=== PATIENT | female | born 1945 | race Caucasian/White ===

== ENCOUNTER → 2017-05-27 | Outpatient (CLI) | payer MEDICARE, BC ==
[~2017-05-27] MED LIST: AMLO5TAB2 PO; CITRTAB16 PO; COQ-100C5 PO; ECASA81 PO; FISH300C PO; GLUC15009 PO; IBUP1TAB5 PO; L-AR1000 PO; L. A1CAP3 PO; LACTCAP8 PO; MONT10TA4 PO; MULT1CAP2 PO; OCUVTAB4 PO; OMEP20TA93 PO; VALS160T4 PO; VITA500C18 PO
--- NOTE | 2017-05-27 12:47 | RADRPT ---
EXAM DATE/TIME: 05/27/2017 12:25 [facility] COMPARISON: No previous studies available for comparison. INDICATIONS : Evaluate for pneumonia, pneumothorax or communicable disease. Pre-op for left total hip replacement. MEDICAL HISTORY : Hypertension. SURGICAL HISTORY : None. ENCOUNTER: Initial ACUITY: 1 day PAIN SCORE: 0/10 LOCATION: Bilateral chest FINDINGS: PA and lateral views of the chest demonstrate the lungs to be symmetrically aerated without evidence of mass, infiltrate or effusion. The cardiomediastinal contours are unremarkable. Mild degenerative changes thoracic spine. CONCLUSION: No acute disease. Oracio Mac MD FACR on May 27, 2017 at 12:45 Board Certified Radiologist. This report was verified electronically.
[2017-05-27 14:06] LABS: BASOPHIL # 0.1 TH/MM3 (0-0.2); BASOPHIL % 1.7 % (0.0-2.0); EOSINOPHIL # 0.4 TH/MM3 (0-0.4); EOSINOPHIL % 5.6 % (0.0-4.0); HEMOGLOBIN 13.6 GM/DL (11.6-15.3); LYMPH % 35.4 % (9.0-44.0); LYMPHOCYTE # 2.8 TH/MM3 (1.0-4.8); MEAN CELL VOLUME 92.8 FL (80.0-100.0); MEAN CORPUSCULAR HEMOGLOBIN 30.8 PG (27.0-34.0); MEAN CORPUSCULAR HGB CONC 33.2 % (32.0-36.0); MONOCYTE # 0.6 TH/MM3 (0-0.9); NEUT % 50.3 % (16.0-70.0); PLATELET COUNT 278 TH/MM3 (150-450); RED BLOOD COUNT 4.42 MIL/MM3 (4.00-5.30); RED CELL DISTRIBUTION WIDTH 13.7 % (11.6-17.2); WHITE BLOOD COUNT 7.9 TH/MM3 (4.0-11.0)
[2017-05-27 14:19] LABS: INTERNATIONAL NORMALIZED RATIO 1.1 RATIO; PROTHROMBIN TIME - PATIENT 10.7 SEC (9.8-11.6)
[2017-05-27 14:20] LABS: BACTERIA, URINE RARE /hpf; BILIRUBIN, URINE NEG (NEG); BLOOD, URINE NEG (NEG); GLUCOSE,URINE NEG (NEG); KETONE, URINE NEG (NEG); MUCUS URINE FEW /lpf (OCC); NITRITE,URINE NEG (NEG); SQUAMOUS EPITHELIAL CELL URINE <1 /hpf (0-5); URINE COLOR YELLOW (YELLW/STRAW); URINE LEUKOCYTE ESTERASE NEG (NEG)
[2017-05-27 14:24] LABS: WESTERGREN SEDIMENTATION RATE 9 mm/hr (0-30)
[2017-05-27 14:30] LABS: ALBUMIN 4.1 GM/DL (3.4-5.0); AST (GOT) 26 U/L (15-37); BICARBONATE 28.4 MEQ/L (21.0-32.0); BLOOD UREA NITROGEN 17 MG/DL (7-18); CALCIUM 9.4 MG/DL (8.5-10.1); CHLORIDE 103 MEQ/L (98-107); CREATININE 0.56 MG/DL (0.50-1.00); GLOMERULAR FILTRATION RATE 107 ML/MIN (>89); GLUCOSE,FASTING 98 MG/DL (74-99); SODIUM (NA) 138 MEQ/L (136-145)
[2017-05-27 14:32] LABS: ALT (GPT) 33 U/L (10-53)
[2017-05-27 14:34] LABS: ALKALINE PHOSPHATASE 90 U/L (45-117); TOTAL BILIRUBIN ADULT 0.3 MG/DL (0.2-1.0); TOTAL PROTEIN 7.9 GM/DL (6.4-8.2)
--- NOTE | 2017-05-28 13:06 | EKG ---
Date Performed: 05/27/2017 Time Performed: 11:46:00 PTAGE: 71 years EKG: Sinus rhythm Within normal limits Abnormal ECG NO PREVIOUS TRACING DOCTOR: Sy Alicea Interpretating Date/Time 05/28/2017 13:05:30
== END ==
LOC: CPRE 11:18
PROVIDERS: ATTEND Orthopaedic Surgery
DX: Z01.812 Encounter for preprocedural laboratory examination (principal); Z01.811 Encounter for preprocedural respiratory examination; Z01.810 Encounter for preprocedural cardiovascular examination; M79.609 Pain in unspecified limb; M25.50 Pain in unspecified joint; M16.12 Unilateral primary osteoarthritis, left hip; Z96.60 Presence of unspecified orthopedic joint implant
CPT/HCPCS: 36415; 71046; 80053; 81001; 85025; 85610; 85652; 85730; 93005

== ENCOUNTER 2017-06-15 05:16 | Inpatient (IN) | payer MEDICARE, BC ==
[~2017-06-15] VITALS: Ht 152.4 cm; Wt 61.8 kg
[~2017-06-15 05:16] MED LIST changes: -LACTCAP8 PO
[2017-06-15] MEDS ORDERED: SODIUM CHLORID 0.9% 500 ML IV PRN (05:45)
[2017-06-15] MEDS ORDERED: EXPAREL PERI-ARTICULAR INJECTION (TOTAL VOL. 60 ML) P-ARTICULR SCH ×2 (05:45)
[2017-06-15] MEDS ORDERED: TRANEXAMIC ACID INJ 700 MG in SODIUM CHLORIDE 0.9% INJ 100 ML IV SCH ×2 (05:45→10:30)
[2017-06-15] MEDS ORDERED: METOPROLOL TARTRATE 25 MG TAB PO PRN (05:45)
[2017-06-15] MEDS ORDERED: POVIDONE IODINE 7.5% SCRUB 118 ML BOTTLE TOPICAL SCH (05:45)
[2017-06-15] MEDS ORDERED: DEXAMETHASONE SOD PHOS 20 MG/5 ML VIAL IV PRN (05:45)
[2017-06-15] MEDS ORDERED: LACTATED RINGER'S 1000 ML IV PRN (05:45)
[2017-06-15] MEDS ORDERED: VANCOMYCIN 1000 MG/NS 250 ML (for <70 kg) IV SCH ×2 (05:45)
[2017-06-15] MEDS ORDERED: CHLORHEXIDINE GLUCONATE 2 % 1 PACK (2 CLOTHS) TOPICAL PRN (05:45)
[2017-06-15] MEDS ORDERED: ceFAZolin 2 GM PREMIX 50 ML IV SCH ×2 (05:45→06:30)
[2017-06-15] MEDS ORDERED: POVIDONE IODINE 5% (ANTISEPSIS KIT) 4 APPLICATIONS EACH NARE PRN (05:45)
[2017-06-15] MEDS ORDERED: META800 PO (05:49)
[2017-06-15] MEDS ORDERED: ACET650T67 PO (05:49)
[2017-06-15] MEDS ORDERED: GENTAMICIN SULFATE 80 MG/2 ML VIAL ONE (06:09)
[2017-06-15] MEDS ORDERED: ceFAZolin INJ 1,000 MG VIAL ONE (06:38)
--- NOTE | 2017-06-15 06:50 | HHI.FF ---
Face to Face Verification Diagnosis: (1) Osteoarthritis of left hip (2) Status post total hip replacement, left Physical Therapy Gait training, Transfer training, bed to chair Hip: Total hip Left LE Weight Bearing: WB as tolerated Left LE Range of Motion: Active ROM Nursing Nursing: Mariam quiles Dressing Changes: Do not change dressing Additional Instructions First dressing change in office I have seen patient Nely Londono on 06/15/17. My clinical findings support the need for the requested home health care services because: Limited ability to care for self High risk of falls I certify that my clinical findings support that this patient is homebound because: Post-op weakness Unsteady gait/balance Radames Alva Jun 15, 2017 06:50
--- NOTE | 2017-06-15 06:50 | HHI.DCPOC ---
Discharge Care Plan Diagnosis: (1) Osteoarthritis of left hip (2) Status post total hip replacement, left Your Health Problems Are: Difficulty with ADL Goals to Promote Your Health * To prevent worsening of your condition and complications * To maintain your health at the optimal level Directions to Meet Your Goals Take your medications as prescribed Follow your dietary instruction Follow activity as directed Keep your appointments as scheduled Take your immunizations and boosters as scheduled If your symptoms worsen call your PCP, if no PCP go to Urgent Care Center or Emergency Room Smoking is Dangerous to Your Health. Avoid second hand smoke Call the 24-hour hour crisis hotline for domestic abuse at Radames Alva Jun 15, 2017 06:50
[2017-06-15] MEDS ORDERED: COMMODE 3-IN-11 MIS (06:59)
[2017-06-15] MEDS ORDERED: WALKER WHEELS/F1 MIS (06:59)
[2017-06-15] MEDS ORDERED: PROPOFOL 200 MG/20 ML AMP ONE (08:33)
--- NOTE | 2017-06-15 08:49 | RADRPT ---
EXAM DATE/TIME: 06/15/2017 07:35 [facility] COMPARISON: No previous studies available for comparison. INDICATIONS : Left hip pain, anterior hip replacement done in operating room. MEDICAL HISTORY : None. SURGICAL HISTORY : None. ENCOUNTER: Initial ACUITY: 1 day PAIN SCORE: 10/10 LOCATION: Left hip. CONCLUSION: Fluoroscopic images during placement of left hip prosthesis. Davey Cabrera MD on June 15, 2017 at 8:46 Board Certified Radiologist. This report was verified electronically.
--- NOTE | 2017-06-15 08:56 | PD.OP ---
cc: Damon Rojas MD Operative Report Date of Surgery: Jun 15, 2017 Preoperative Diagnosis: Left hip severe osteoarthritis Postoperative Diagnosis: Same Procedure: Left total hip arthroplasty Anesthesia: Spinal Surgeon: Damon Rojas Tailing Hand(s): SARAN Farfan The surgical procedure was assisted by my Advanced Registered Nurse Practitioner. My VOICE OVER ARTIST presence was necessary throughout this case for the manipulation and positioning of the surgical extremity. My VOICE OVER ARTIST was assisting me throughout the duration of this procedure. The skill set of an Advance Registered Nurse Practitioner was medically necessary to complete this procedure. During the surgical case, the wound care technician was working at the back table and the Advance Registered Nurse Practitioner was directly assisting me. Operation and Findings: IMPLANT DESCRIPTION: 1. [place] Gription Cup, acetabular size 50, with 2 acetabular screws. 2. [place] AltrX polyethylene, neutral. 4. [place] femoral stem size 11, no collar, standard offset. 5. Femoral head/neck, 32, +1. ESTIMATED BLOOD LOSS: 250 cc. JUSTIFICATION FOR PROCEDURE: The patient has end-stage osteoarthritis to the hip. There is an attached conservative measures pathway form in the chart that describes the nonoperative measures that were undertaken prior to consideration of surgical management. The patient understood the risks and benefits of surgical management. See my office notes for further details. PROCEDURE: The patient was brought back to the operative theatre. Adequate anesthesia was obtained. The patient received intravenous vancomycin and Ancef. Note that a test dose of Ancef was given by anesthesia prior to regaining of the surgery. The patient was carefully placed on the operative table. The lower extremity was prepped and draped in the usual sterile fashion. Fluoroscopic images were obtained. We made a standard anterior incision over the hip. We dissected through the TFL fascia, exposing the anterior capsule. Arthrotomy was performed in a T-shaped fashion. The capsule was tagged with a #2 FiberWire. End-stage arthritis was identified. Osteotomy was performed through the femoral neck exposing the acetabulum. Remnants of the labrum were resected and osteophytes were removed. We sequentially reamed the acetabulum. We trialed the hip and placed the final cup into position. This was done under fluoroscopic guidance to obtain the appropriate inclination and anteversion. A manhole cover was placed into the acetabular component. We then placed the final polyethylene into position and confirmed that it was well seated. Capsular attachments on the calcar and the inner aspect of the greater trochanter were resected. On the proximal aspect of the femur we used a rongeur , box osteotome, canal finder, sequential broaches and lateralizing rasp. We calcar planed the proximal femur. Then thoroughly irrigated the wound. We trialed the hip with the appropriate size stem. We placed the final stem in to position and trialed again. The hip was stable while it was externally rotated 70 degrees when the leg was lowered to the floor. The final head was applied, and final fluoroscopic images were obtained. The wound was thoroughly irrigated again. Interarticular injection of liposomal bupivacaine was given. The capsule was closed with #2 FiberWire and #1 Vicryl. The deep fascia was closed with a #2 Stratafix, followed by 2-0 Vicryl in the skin and Dermabond dressing. Postop plan is to weight-bear as tolerated. DVT prophylaxis will be performed with SCDzainab, RONEN mora, early mobilization, and Lovenox followed by aspirin. Damon Rojas MD Jun 15, 2017 08:56
[2017-06-15] MEDS ORDERED: DO NOT ADM ANY ANTICOAGULANT DRUGS PRN (09:16)
[2017-06-15] MEDS ORDERED: MIDAZOLAM HCL 2 MG/2 ML VIAL ONE (09:21)
[2017-06-15] MEDS ORDERED: *morphine SULFATE 10 MG/ML PERIprocedure ONLY ONE ×2 (09:24→10:51)
[2017-06-15] MEDS: amLODIPine BESYLATE 5 MG TAB PO SCH (10:00)
[2017-06-15] MEDS: VALSARTAN 160 MG TAB PO SCH (10:00)
[2017-06-15] MEDS: PANTOPRAZOLE SOD 20 MG DELAYED RELEASE TAB PO SCH (10:00)
[2017-06-15] MEDS ORDERED: ALUMINUM/MAGNESIUM/SIMETH 30 ML CUP PO PRN (10:30)
[2017-06-15] MEDS ORDERED: ACETAMINOPHEN/HYDROcodone 325 MG/5 MG TAB PO PRN (10:30)
[2017-06-15] MEDS ORDERED: Post-op Orders (for Pharmacy) XX ONE (10:30)
[2017-06-15] MEDS ORDERED: NALOXONE HCL 0.4 MG/ML AMP IV PUSH PRN (10:30)
[2017-06-15] MEDS ORDERED: diphenhydrAMINE HCL 50 MG/ML VIAL IV PUSH PRN (10:30)
[2017-06-15] MEDS ORDERED: BISACODYL 10 MG SUPP RECTAL PRN (10:30)
[2017-06-15] MEDS: METAXALONE 800 MG TAB PO SCH ×3 (11:00→17:18)
--- NOTE | 2017-06-15 11:21 | RADRPT ---
EXAM DATE/TIME: 06/15/2017 10:18 [facility] COMPARISON: No previous studies available for comparison. INDICATIONS : Post op left hip surgery. MEDICAL HISTORY : None. SURGICAL HISTORY : None. ENCOUNTER: Initial ACUITY: 1 day PAIN SCORE: 0/10 LOCATION: Left hip. FINDINGS: Examination of the left hip was performed with AP Pelvis. A left hip arthroplasty. Postsurgical camacho es are seen. No hardware loosening/fracture of left hip. The acetabulum is grossly intact. Lucency i n the iliac bone likely postsurgical changes/air. CONCLUSION: Left hip arthroplasty. Davey Cabrera MD on June 15, 2017 at 11:16 Board Certified Radiologist. This report was verified electronically.
[2017-06-15 12:00] VITALS: BP 105/59; PULSE 87; RESP 17; TEMP 95.4; O2SAT 97
[2017-06-15] MEDS ORDERED: PHENYLEPH/NS 1000 MCG/10 ML SYR IV ONE (12:00)
[2017-06-15] MEDS: SODIUM CHLOR 0.9% 1000 ML INJ 1,000 ML IV SCH ×2 (12:00→19:56)
[2017-06-15] MEDS ORDERED: LIDOCAINE HCL 1% PF 5 ML SYRINGE OTHER ONE (12:00)
[2017-06-15] MEDS ORDERED: PROPOFOL 200 MG/20 ML AMP IV ONE (12:00)
[2017-06-15] MEDS ORDERED: ePHEDrine/NS 25 MG/5 ML SYRINGE IV ONE (12:00)
[2017-06-15] MEDS ORDERED: LACTATED RINGER'S 1000 ML INJ 1,000 ML IV ONE (12:00)
[2017-06-15] MEDS: ACETAMINOPHEN/HYDROcodone 325 MG/5 MG TAB PO PRN ×2 (12:46→16:35)
[2017-06-15 15:38] VITALS: O2SAT 98
[2017-06-15 16:00] VITALS: BP 149/54; PULSE 90; RESP 17; TEMP 95.8; O2SAT 95
[2017-06-15] MEDS: ONDANSETRON HCL 4 MG/2 ML VIAL IVP PRN (17:57)
[2017-06-15] MEDS: MONTELUKAST SODIUM 10 MG TAB PO SCH (19:56)
[2017-06-15] MEDS: traMADol HCL 50 MG TAB PO PRN (19:56)
--- NOTE | 2017-06-15 20:08 | RADRPT ---
EXAM DATE/TIME: 06/15/2017 19:31 [facility] COMPARISON: No previous studies available for comparison. INDICATIONS : Left hip pain. Evaluate for injury to femoral nerve. ORAL CONTRAST: No oral contrast ingested. RADIATION DOSE: 15.35 CTDIvol (mGy) MEDICAL HISTORY : Hypertension. SURGICAL HISTORY : Cholecystectomy. Left total hip. ENCOUNTER: Initial ACUITY: 1 day PAIN SCALE: 9/10 LOCATION: Left hip. TECHNIQUE: Volumetric scanning of the pelvis was performed. Using automated exposure control and adjustment of the mA and/or kV according to patient size, radiation dose was kept as low as reasonably achievable t o obtain optimal diagnostic quality images. DICOM format image data is available electronically for review and comparison. FINDINGS: There are postoperative changes of left hip replacement. The anterior screw extending from the acetab ular cup extends into the left iliacus muscle. There is a small iliacus hematoma. There is also multi loculated air within the left iliacus muscle. There is also a air in the soft tissues around the left hip from hip replacement. CONCLUSION: 1. Postoperative left total hip replacement. The anterior screw extends into the left iliacus muscle with a small amount of iliacus hemorrhage and multiple locules of air soft tissues around the hip rep lacement. The posterior screw remains within the iliac bone. Jaycob Vallejo MD on June 15, 2017 at 20:01 Board Certified Radiologist. This report was verified electronically.
[2017-06-15 20:30] VITALS: BP 121/64; PULSE 97; RESP 17; TEMP 97.8; O2SAT 97
[2017-06-15] MEDS ORDERED: PROMETHAZINE HCL 12.5 MG SUPP RECTAL PRN (20:30)
[2017-06-15] MEDS: ZOLPIDEM TARTRATE 5 MG TAB PO PRN (21:53)
[2017-06-16] MEDS: MORPHINE SULFATE 2 MG/ML INJ IV PUSH PRN ×3 (00:10→09:33)
[2017-06-16] MEDS: SODIUM CHLOR 0.9% 1000 ML INJ 1,000 ML IV SCH ×3 (00:10→19:36)
[2017-06-16] MEDS: ONDANSETRON HCL 4 MG/2 ML VIAL IVP PRN ×4 (00:10→18:20)
[2017-06-16 00:20] VITALS: BP 119/66; PULSE 98; RESP 17; TEMP 97.1; O2SAT 94
[2017-06-16] MEDS: traMADol HCL 50 MG TAB PO PRN ×2 (04:12→10:48)
[2017-06-16 04:35] VITALS: BP 122/62; PULSE 90; RESP 17; TEMP 98.3; O2SAT 95
[2017-06-16 08:00] VITALS: BP 105/59; PULSE 90; RESP 18; TEMP 98.6; O2SAT 95
[2017-06-16] MEDS ORDERED: ENOXAPARIN SODIUM 40 MG/0.4 ML SYRINGE SQ SCH (08:00)
[2017-06-16 08:36] LABS: HEMATOCRIT 29.5 % (35.0-46.0); HEMOGLOBIN 10.2 GM/DL (11.6-15.3); MEAN CELL VOLUME 90.9 FL (80.0-100.0); MEAN CORPUSCULAR HEMOGLOBIN 31.4 PG (27.0-34.0); MEAN CORPUSCULAR HGB CONC 34.6 % (32.0-36.0); MEAN PLATELET VOLUME 7.9 FL (7.0-11.0); PLATELET COUNT 219 TH/MM3 (150-450); RED BLOOD COUNT 3.25 MIL/MM3 (4.00-5.30); RED CELL DISTRIBUTION WIDTH 14.5 % (11.6-17.2); WHITE BLOOD COUNT 10.6 TH/MM3 (4.0-11.0)
[2017-06-16] MEDS: VALSARTAN 160 MG TAB PO SCH (08:38)
[2017-06-16] MEDS: PANTOPRAZOLE SOD 20 MG DELAYED RELEASE TAB PO SCH (08:38)
[2017-06-16] MEDS: amLODIPine BESYLATE 5 MG TAB PO SCH (08:38)
[2017-06-16] MEDS: METAXALONE 800 MG TAB PO SCH ×3 (08:39→18:20)
[2017-06-16] MEDS: HYDROCHLOROTHIAZIDE 12.5 MG CAP PO SCH (08:41)
[2017-06-16 12:00] VITALS: BP 129/56; PULSE 93; RESP 18; TEMP 98.2; O2SAT 92
[2017-06-16] MEDS ORDERED: DEXAMETHASONE SOD PHOS 20 MG/5 ML VIAL IV ONE (12:00)
--- NOTE | 2017-06-16 12:02 | RADRPT ---
EXAM DATE/TIME: 06/16/2017 11:27 [facility] COMPARISON: No previous studies available for comparison. INDICATIONS : Evaluate for femoral nerve palsy. Left quad weakness and pain. MEDICAL HISTORY : Hypertension. SURGICAL HISTORY : Cholecystectomy. Discectomy, lumbar. Left hip replacement. ENCOUNTER: Subsequent ACUITY: 2 day PAIN SCORE: 0/10 LOCATION: back. TECHNIQUE: Multiplanar multisequence MRI of the lumbar spine was performed without contrast. FINDINGS: The most caudal appearing lumbar vertebra is numbered as L5. VERTEBRAE: Bony changes about the T12-L1 intervertebral disc indicating reactive change from degenerative disc d isease. Similar finding is seen at L5-S1. Alignment is within normal limits. CONUS: Normal level and configuration. Peripelvic cysts noted in the kidneys. T12-L1: Broad-based disc bulge results in flattening of the anterior contour of the thecal sac. Central canal diameter is within normal limits. Moderate bilateral neural foraminal narrowing. L1-L2: No evidence of focal disc protrusion. Central canal normal diameter. Neural foraminal diameters withi n normal limits. L2-L3: Broad-based disc bulge and moderate severity bilateral facet arthrosis. Central canal diameter is min imally narrowed. Mild narrowing of the left lateral recess. Minimal bilateral neural foraminal narrow ing. L3-L4: Broad-based disc bulge and moderate bilateral facet arthrosis. Mild central canal narrowing. Moderate right and mild left neural foraminal narrowing. L4-L5: Broad-based disc bulge and moderate bilateral facet arthrosis. Central canal diameter within normal l imits. Moderate left neural foraminal narrowing. Small right-sided synovial cyst extending from the f acet joint measuring 4 mm and mildly deforming the right posterior aspect of the thecal sac. L5-S1: Severe bilateral facet arthrosis. Broad-based disc osteophyte complex. Central canal diameter within normal limits. Moderate right neural foraminal narrowing and moderate right lateral recess narrowing. Possible impingement of the right S1 nerve root. Mild left neural foraminal narrowing. CONCLUSION: 1. Multilevel degenerative findings of the lumbar spine. 2. Prominent reactive bony changes right base disc bulge and facet arthrosis a T12-L1 results in mode rate bilateral neural foraminal narrowing. Broad-based disc bulge and facet arthrosis at L2-3 results in minimal central canal narrowing and mild left lateral recess narrowing. 3. Broad-based disc bulge and facet arthrosis at L3-4 results in mild central canal narrowing, modera te right and mild left neural foraminal narrowing. 4. Broad-based disc bulge and facet arthrosis L4-5 results in moderate left neural foraminal narrowin g. Small right-sided synovial cyst is also seen at this level extending from the facet joint. 5. Severe bilateral facet arthrosis and broad-based disc osteophyte complex at L5-S1 resulting in mod erate right neural foraminal narrowing and moderate right lateral recess narrowing with possible impi ngement of right S1 nerve root. Koby Kingsley MD on June 16, 2017 at 11:52 Board Certified Radiologist. This report was verified electronically.
[2017-06-16] MEDS: ACETAMINOPHEN/HYDROcodone 325 MG/5 MG TAB PO PRN ×2 (12:31→18:19)
--- NOTE | 2017-06-16 13:11 | PD.ORT.PN ---
Subjective Post Op Day #: 1 Subjective Remarks Patient is resting in bed with moderate to severe left hip pain and weakness about the quads. Patient unable to ambulate due to weakness and buckling of the left knee. Objective Vitals Vital Signs Date Time Temp Pulse Resp B/P (MAP) Pulse Ox O2 Delivery O2 Flow Rate FiO2 06/16/17 08:00 98.6 90 18 105/59 (74) 95 06/16/17 04:35 98.3 90 17 122/62 (82) 95 06/16/17 00:20 97.1 98 17 119/66 (83) 94 06/15/17 20:30 97.8 97 17 121/64 (83) 97 06/15/17 16:00 95.8 90 17 149/54 (85) 95 06/15/17 15:38 98 21 I/O 06/15/17 06/15/17 06/15/17 06/16/17 06/16/17 06/16/17 07:00 15:00 23:00 07:00 15:00 23:00 Intake Total 1700 ml 360 ml 2060 ml Output Total 251 ml Balance 1449 ml 360 ml 2060 ml Intake Oral 360 ml 360 ml IV Total 1700 ml 1700 ml Output Stool Total 1 ml Estimated Blood Loss 250 ml # Voids 1 1 3 # Bowel Movements 1 0 0 Result Diagram: 06/16/17 0758 Imaging Last 24 hours Impressions Lumbar Spine MRI 06/16/17 0000 Signed Impressions: Service Date/Time: May 11:27 - CONCLUSION: 1. Multilevel degenerative findings of the lumbar spine. 2. Prominent reactive bony changes right base disc bulge and facet arthrosis a T12-L1 results in moderate bilateral neural foraminal narrowing. Broad-based disc bulge and facet arthrosis at L2-3 results in minimal central canal narrowing and mild left lateral recess narrowing. 3. Broad-based disc bulge and facet arthrosis at L3- 4 results in mild central canal narrowing, moderate right and mild left neural foraminal narrowing. 4. Broad-based disc bulge and facet arthrosis L4-5 results in moderate left neural foraminal narrowing. Small right-sided synovial cyst is also seen at this level extending from the facet joint. 5. Severe bilateral facet arthrosis and broad-based disc osteophyte complex at L5-S1 resulting in moderate right neural foraminal narrowing and moderate right lateral recess narrowing with possible impingement of right S1 nerve root. Koby Kingsley MD Procedures Left DESTINEE Objective Remarks Dressing is C/D/I. Calf is soft and nontender. EHL/TA/G intact. 2+ pedal pulse. + SILT. Weakness (1/5 quad strength). 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 WBAT LLE 2.Hold Lovenox for potential surgery tomorrow. 3. Maintain dressing. No dressing changes 4. Awaiting MRI results of LS to r/o complication causing LLE weakness (quads) 5. CT of pelvis confirming acetabular screw protruding from acetabulum causing soft tissue impingement and hematoma 6. Potential for femoral nerve palsy from acetabular screw vs complication from LS. Patient has extensive history of LS complaints including pain 7. May need subsequent surgery to address protruding screw in left hip. 8. Dr. Rojas to f/u with patient this afternoon. Radames Alva Jun 16, 2017 13:11
[2017-06-16 16:00] VITALS: BP 110/88; PULSE 86; RESP 18; TEMP 97.4; O2SAT 92
--- NOTE | 2017-06-16 17:53 | PD.ORT.PN ---
Subjective Subjective Remarks Feeling better now than earlier. Complains of numbness of anterior thigh towards the distal and including mostly medially and anteriorly. Complains of weakness of the quadriceps and buckling of the knee. She denies previous weakness in this area. Objective Vitals Vital Signs Date Time Temp Pulse Resp B/P (MAP) Pulse Ox O2 Delivery O2 Flow Rate FiO2 06/16/17 12:00 98.2 93 18 129/56 (80) 92 06/16/17 08:00 98.6 90 18 105/59 (74) 95 06/16/17 04:35 98.3 90 17 122/62 (82) 95 06/16/17 00:20 97.1 98 17 119/66 (83) 94 06/15/17 20:30 97.8 97 17 121/64 (83) 97 I/O 06/15/17 06/15/17 06/15/17 06/16/17 06/16/17 06/16/17 07:00 15:00 23:00 07:00 15:00 23:00 Intake Total 1700 ml 360 ml 2060 ml Output Total 251 ml Balance 1449 ml 360 ml 2060 ml Intake Oral 360 ml 360 ml IV Total 1700 ml 1700 ml Output Stool Total 1 ml Estimated Blood Loss 250 ml # Voids 1 1 3 # Bowel Movements 1 0 0 Result Diagram: 06/16/17 0758 Imaging Last 24 hours Impressions Lumbar Spine MRI 06/16/17 0000 Signed Impressions: Service Date/Time: May 11:27 - CONCLUSION: 1. Multilevel degenerative findings of the lumbar spine. 2. Prominent reactive bony changes right base disc bulge and facet arthrosis a T12-L1 results in moderate bilateral neural foraminal narrowing. Broad-based disc bulge and facet arthrosis at L2-3 results in minimal central canal narrowing and mild left lateral recess narrowing. 3. Broad-based disc bulge and facet arthrosis at L3- 4 results in mild central canal narrowing, moderate right and mild left neural foraminal narrowing. 4. Broad-based disc bulge and facet arthrosis L4-5 results in moderate left neural foraminal narrowing. Small right-sided synovial cyst is also seen at this level extending from the facet joint. 5. Severe bilateral facet arthrosis and broad-based disc osteophyte complex at L5-S1 resulting in moderate right neural foraminal narrowing and moderate right lateral recess narrowing with possible impingement of right S1 nerve root. Koby Kingsley MD Procedures Left DESTINEE Objective Remarks Dressing is C/D/I. Calf is soft and nontender. EHL/TA/G intact. 2+ pedal pulse. Some numbness anterior thigh by the knee.. Weakness (1/5 quad strength) . Good strength to hamstrings. 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 Based on the imaging including x-rays and the CT scan of the hip I am concerned that the medial screw could potentially be in proximity of the femoral nerve. I did contact Dr. Sosa, a musculoskeletal fellowship trained radiologist and reviewed the images with him as well. We both have similar concerns. The screw is within the iliacus muscle. The patient's physical exam findings are consistent with a femoral nerve palsy. When I reviewed the MRI of the lumbar spine I do see multilevel degenerative changes along with some stenosis. However, I do not see findings that would necessarily explain her postoperative nerve palsy. Therefore, at this point we do feel that it would be imperative to move forward with surgical management to revise the screw component on the acetabular shell. This can be revised either to a shorter screw or potentially removing the screw. We do feel that it is important to move forward with surgical management so as to give the best chance for recovery of the femoral nerve. We discussed the risks and benefits of surgical management. We discussed how surgery would be accomplished. We would try to retain the femoral and acetabular components if possible with revision of the screw and exchange with a new polyethylene liner. However, it is possible that the femoral stem may need to be removed in order to gain access to the acetabulum. Additionally, it is possible that the acetabular component ultimately could shift or move which could require revision to this component as well. She understands risks of surgery include injury to nerves, blood vessels, bleeding, infection, continued pain, complications associated with the prosthesis such as leg length issues, fracture , or dislocation, DVT, pneumonia, . The patient had a dose of Lovenox this morning. This has been DC'd. We wrote orders for nothing by mouth past midnight and also for [facility] bath tonight and tomorrow. Damon Rojas MD Jun 16, 2017 17:53
[2017-06-16] MEDS: MULTIVITAMINS/MINERALS THERAPEUTIC TAB PO SCH (19:34)
[2017-06-16] MEDS: DOCUSATE SODIUM 100 MG CAP PO SCH (19:34)
[2017-06-16] MEDS: MONTELUKAST SODIUM 10 MG TAB PO SCH (19:35)
[2017-06-16 20:30] VITALS: BP 124/74; PULSE 94; RESP 16; TEMP 97.3; O2SAT 93
[2017-06-16] MEDS: ZOLPIDEM TARTRATE 5 MG TAB PO PRN (21:35)
[2017-06-17] VITALS (7 sets, daily range): BP systolic 104–148; BP diastolic 57–81; PULSE 80–100; RESP 17; TEMP 96.1–98.4; O2SAT 94–99
[2017-06-17] MEDS: ONDANSETRON HCL 4 MG/2 ML VIAL IVP PRN ×2 (03:29→10:35)
[2017-06-17] MEDS: ACETAMINOPHEN/HYDROcodone 325 MG/5 MG TAB PO PRN ×2 (03:29→08:08)
[2017-06-17 06:11] LABS: HEMOGLOBIN 10.1 GM/DL (11.6-15.3); MEAN CELL VOLUME 91.2 FL (80.0-100.0); MEAN CORPUSCULAR HEMOGLOBIN 31.7 PG (27.0-34.0); MEAN CORPUSCULAR HGB CONC 34.7 % (32.0-36.0); MEAN PLATELET VOLUME 7.9 FL (7.0-11.0); PLATELET COUNT 190 TH/MM3 (150-450); RED BLOOD COUNT 3.18 MIL/MM3 (4.00-5.30); RED CELL DISTRIBUTION WIDTH 14.6 % (11.6-17.2); WHITE BLOOD COUNT 11.1 TH/MM3 (4.0-11.0)
[2017-06-17] MEDS: PANTOPRAZOLE SOD 20 MG DELAYED RELEASE TAB PO SCH (08:06)
[2017-06-17] MEDS: amLODIPine BESYLATE 5 MG TAB PO SCH (08:07)
[2017-06-17] MEDS: MULTIVITAMINS/MINERALS THERAPEUTIC TAB PO SCH ×2 (08:07→22:53)
[2017-06-17] MEDS: HYDROCHLOROTHIAZIDE 12.5 MG CAP PO SCH (08:07)
[2017-06-17] MEDS: VALSARTAN 160 MG TAB PO SCH (08:07)
[2017-06-17] MEDS: METAXALONE 800 MG TAB PO SCH ×4 (08:08→22:55)
[2017-06-17] MEDS: DOCUSATE SODIUM 100 MG CAP PO SCH ×2 (08:13→22:53)
[2017-06-17] MEDS ORDERED: GENTAMICIN SULFATE 80 MG/2 ML VIAL ONE (11:44)
[2017-06-17] MEDS ORDERED: PROPOFOL 200 MG/20 ML AMP IV ONE (12:00)
[2017-06-17] MEDS ORDERED: LIDOCAINE HCL 1% PF 5 ML SYRINGE OTHER ONE (12:00)
[2017-06-17] MEDS ORDERED: NEOSTIGMINE 5 MG/5 ML SYRINGE IV PUSH ONE (12:00)
[2017-06-17] MEDS ORDERED: DEXAMETHASONE SOD PHOS 4 MG/ML VIAL IV ONE (12:00)
[2017-06-17] MEDS ORDERED: ePHEDrine/NS 25 MG/5 ML SYRINGE IV ONE (12:00)
[2017-06-17] MEDS ORDERED: ONDANSETRON HCL 4 MG/2 ML VIAL IV ONE (12:00)
[2017-06-17] MEDS ORDERED: ROCURONIUM INJ 50 MG/5 ML SYRINGE IV PUSH ONE (12:00)
[2017-06-17] MEDS ORDERED: PHENYLEPH/NS 1000 MCG/10 ML SYR IV ONE (12:00)
[2017-06-17] MEDS ORDERED: VANCOMYCIN HCL 1000 MG VIAL ONE (12:11)
[2017-06-17] MEDS ORDERED: EXPAREL PERI-ARTICULAR INJECTION (TOTAL VOL. 60 ML) P-ARTICULR SCH ×2 (13:00)
[2017-06-17] MEDS ORDERED: TRANEXAMIC ACID INJ 618 MG in SODIUM CHLORIDE 0.9% INJ 100 ML IV SCH (13:00)
--- NOTE | 2017-06-17 13:21 | OTSOAPIP ---
TIME SESSION COMPLETED: AM TREATMENT TIME: 0 MINS. CHART REVIEWED. INTERDISCIPLINARY COMMUNICATION: PATENT WAS NOT AVAILABLE WAS BEING PREPARED TO GO TO SURGERY PLAN: WILL SEE PATIENT NEXT TREATMENT DAY Therapist: BRIGHT MANJARREZ/Mario Signature on file
[2017-06-17] MEDS: SODIUM CHLOR 0.9% 1000 ML INJ 1,000 ML IV SCH ×4 (14:00→22:54)
--- NOTE | 2017-06-17 14:12 | PD.OP ---
cc: Damon Rojas MD Operative Report Date of Surgery: Jun 17, 2017 Preoperative Diagnosis: Left hip prominent hardware status post total hip arthroplasty Postoperative Diagnosis: Same Procedure: Left hip revision of acetabular hardware status post total hip arthroplasty Anesthesia: Gen. Surgeon: Damon Rojas Psychiatry Instructor(s): SARAN Farfan The surgical procedure was assisted by my Advanced Registered Nurse Practitioner. My MANAGER ELECTRONIC presence was necessary throughout this case for the manipulation and positioning of the surgical extremity. My MANAGER ELECTRONIC was assisting me throughout the duration of this procedure. The skill set of an Advance Registered Nurse Practitioner was medically necessary to complete this procedure. During the surgical case, the cardiovascular surgical tech was working at the back table and the Advance Registered Nurse Practitioner was directly assisting me. Operation and Findings: IMPLANT DESCRIPTION: 1. Removal of acetabular screw 2. Removal of neutral, standard polyethylene liner with implantation of neutral +4 polyethylene liner ESTIMATED BLOOD LOSS: 50cc. JUSTIFICATION FOR PROCEDURE: Please see my progress notes from the previous days rounding for further details. Essentially, there was prominence of one of the 2 acetabular screws which was within the iliacus muscle. There was suspicion that the tip of the screw could be creating a femoral nerve palsy. Therefore we decided to go back to surgery for removal of the screw. She understood the risks and benefits of surgical management. Again see my previous notes for further details. PROCEDURE: The patient was brought back to the operative theatre. Adequate anesthesia was obtained. The patient received intravenous the mycin and Ancef. The patient was carefully placed on the operative table. The lower extremity was prepped and draped in the usual sterile fashion. Fluoroscopic images were obtained. We made a standard anterior incision over the hip. This was done over the previous incision. There was small amount of hematoma evacuated .We dissected through the TFL fascia, exposing the anterior capsule. Previous sutures were removed. Arthrotomy was performed in a T-shaped fashion. The capsule was tagged with a #2 FiberWire. The replacement was unremarkable at this point with no sign of infection. We dislocated the hip. The femoral head was in good condition. This was removed. We excellent rotated the hip and we were able to keep the femoral component as this was in good position with no complications noted. We turned our attention to the acetabular liner which was removed using the [place] liner extraction tool without difficulty. The liner itself was in good condition. We identified the screw that was protruding medially under fluoroscopic visualization. We remove the screw. And we took multiple fluoroscopic imaging confirming that we had removed the correct screw. That screw did have good purchase. We tightened the other screw to make sure that it had excellent purchase, which it did. We made sure that the acetabular shell did not move during this procedure. We decided to place a neutral +[address] in order to obtain a little further offset compared to the original liner. This was placed without difficulty. We reapplied the previous femoral head and impacted it. We reduced the hip and took fluoroscopic imaging. We irrigated. Interarticular injection of liposomal bupivacaine was given. The capsule was closed with #2 FiberWire and # 1 Vicryl. The deep fascia was closed with a #2 Stratafix, followed by 2-0 Vicryl in the skin and Dermabond dressing. Postop plan is to weight-bear as tolerated. DVT prophylaxis will be performed with SCDs, RONEN mora, early mobilization, and Lovenox followed by aspirin. Damon Rojas MD Jun 17, 2017 14:12
--- NOTE | 2017-06-17 14:21 | RADRPT ---
EXAM DATE/TIME: 06/17/2017 13:02 [facility] COMPARISON: HIP LEFT (AP&LAT 2/3VWS) W AP PELVIS, June 15, 2017, 10:18. CT PELVIS W/O CONTRAST, June 15, 018, 19:31. HIP LEFT (AP&LAT 2/3VWS) WO AP PELVIS, June 15, 2017, 7:35. INDICATIONS : Revision of left total hip in OR. MEDICAL HISTORY : None. SURGICAL HISTORY : None. ENCOUNTER: Subsequent ACUITY: 3 days PAIN SCORE: Non-responsive. LOCATION: Left hip FINDINGS: Multiple films were submitted. The last film shows total arthroplasty in good position. There's thi s single anchoring screw. CONCLUSION: Arthroplasty as above. Oracio Mac MD FACR on June 17, 2017 at 14:15 Board Certified Radiologist. This report was verified electronically.
--- NOTE | 2017-06-17 14:38 | PD.ORT.PN ---
Objective Vitals Vital Signs Date Time Temp Pulse Resp B/P (MAP) Pulse Ox O2 Delivery O2 Flow Rate FiO2 06/17/17 07:51 98.0 83 17 122/65 (84) 94 06/17/17 04:12 97.5 87 17 120/63 (82) 96 06/17/17 00:30 98.4 92 17 148/81 (103) 96 06/16/17 20:30 97.3 94 16 124/74 (91) 93 06/16/17 16:00 97.4 86 18 110/88 (95) 92 I/O 06/16/17 06/16/17 06/16/17 06/17/17 06/17/17 06/17/17 07:00 15:00 23:00 07:00 15:00 23:00 Intake Total 2060 ml 480 ml 360 ml 0 ml 750 ml Output Total 50 ml Balance 2060 ml 480 ml 360 ml 0 ml 700 ml Intake Oral 360 ml 480 ml 360 ml 0 ml IV Total 1700 ml 750 ml Estimated Blood Loss 50 ml # Voids 3 4 4 3 # Bowel Movements 0 0 0 0 Result Diagram: 06/17/17 0525 Imaging Last 24 hours Impressions Lumbar Spine MRI 06/16/17 0000 Signed Impressions: Service Date/Time: May 11:27 - CONCLUSION: 1. Multilevel degenerative findings of the lumbar spine. 2. Prominent reactive bony changes right base disc bulge and facet arthrosis a T12-L1 results in moderate bilateral neural foraminal narrowing. Broad-based disc bulge and facet arthrosis at L2-3 results in minimal central canal narrowing and mild left lateral recess narrowing. 3. Broad-based disc bulge and facet arthrosis at L3- 4 results in mild central canal narrowing, moderate right and mild left neural foraminal narrowing. 4. Broad-based disc bulge and facet arthrosis L4-5 results in moderate left neural foraminal narrowing. Small right-sided synovial cyst is also seen at this level extending from the facet joint. 5. Severe bilateral facet arthrosis and broad-based disc osteophyte complex at L5-S1 resulting in moderate right neural foraminal narrowing and moderate right lateral recess narrowing with possible impingement of right S1 nerve root. 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 WBAT LLE 2. Lovenox followed by ASA for DVT prophylaxis 3. Ice to the left hip PRN 4. Reassess LLE to see if quad strength has improved with surgery (removal of acetabular screw) secondary to femoral nerve palsy 5. Anticipatory discharge home with home health on Tuesday or Tuesday 6. F/U in the office with Dr. Rojas or SARAN Wilcox as previously scheduled. 7. No dressing changes. First dressing change in office. Radames Alva Jun 17, 2017 14:38
[2017-06-17] MEDS ORDERED: DO NOT ADM ANY ANTICOAGULANT DRUGS PRN (14:40)
[2017-06-17] MEDS ORDERED: Post-op Orders (for Pharmacy) XX ONE (14:45)
[2017-06-17] MEDS ORDERED: MIDAZOLAM HCL 2 MG/2 ML VIAL ONE (14:49)
[2017-06-17] MEDS ORDERED: MORPHINE SULFATE 4 MG/ML INJ ONE (14:49)
[2017-06-17] MEDS ORDERED: *ONDANSETRON 4 MG VIAL PERIprocedural Use ONLY ONE (14:55)
[2017-06-17] MEDS ORDERED: *morphine SULFATE 10 MG/ML PERIprocedure ONLY ONE (14:58)
[2017-06-17] MEDS ORDERED: *PROMETHAZINE 25 MG/ML VIAL PERIprocedural use ONLY ONE (15:14)
--- NOTE | 2017-06-17 16:09 | RADRPT ---
EXAM DATE/TIME: 06/17/2017 15:14 [facility] COMPARISON: HIP LEFT (AP&LAT 2/3VWS) W AP PELVIS, June 15, 2017, 10:18. INDICATIONS : Post-op left hip replacement. MEDICAL HISTORY : None. SURGICAL HISTORY : None. ENCOUNTER: Initial ACUITY: 1 day PAIN SCORE: 3/10 LOCATION: Left Hip FINDINGS: Status post placement of a left hip prosthesis. There is good position and alignment of the left hip prosthesis. The bony structures are grossly intact. CONCLUSION: Good position and alignment on this postoperative study. Alexis Quinones MD on June 17, 2017 at 16:06 Board Certified Radiologist. This report was verified electronically.
[2017-06-17] MEDS: MONTELUKAST SODIUM 10 MG TAB PO SCH (22:53)
[2017-06-17] MEDS: ZOLPIDEM TARTRATE 5 MG TAB PO PRN (23:02)
[2017-06-18] VITALS (7 sets, daily range): BP systolic 87–108; BP diastolic 52–64; PULSE 76–91; RESP 16–17; TEMP 96.8–99.5; O2SAT 93–100
[2017-06-18] MEDS: ACETAMINOPHEN/HYDROcodone 325 MG/5 MG TAB PO PRN ×4 (06:16→22:10)
[2017-06-18] MEDS: ONDANSETRON HCL 4 MG/2 ML VIAL IVP PRN (06:22)
--- NOTE | 2017-06-18 06:29 | PD.ORT.PN ---
Subjective Subjective Remarks Resting comfortably. States that she does feel she has improvement in strength in her quads Objective Vitals Vital Signs Date Time Temp Pulse Resp B/P (MAP) Pulse Ox O2 Delivery O2 Flow Rate FiO2 06/18/17 04:15 97.6 88 17 108/56 (73) 97 06/18/17 00:35 97.0 89 17 108/56 (73) 100 06/17/17 20:35 96.9 100 17 104/57 (73) 97 06/17/17 20:16 99 Nasal Cannula 2.00 06/17/17 16:00 97.4 80 17 104/59 (74) 99 06/17/17 15:30 89 18 125/62 (83) 97 Nasal Cannula 3 06/17/17 15:15 90 16 141/62 (88) 95 Nasal Cannula 3 06/17/17 15:00 92 20 147/74 (98) 95 Nasal Cannula 3 06/17/17 14:45 79 19 137/64 (88) 92 Nasal Cannula 3 06/17/17 14:39 97.5 85 22 175/72 (106) 94 Nasal Cannula 3 06/17/17 12:00 96.1 84 17 129/70 (89) 95 06/17/17 07:51 98.0 83 17 122/65 (84) 94 I/O 06/17/17 06/17/17 06/17/17 06/18/17 06/18/17 06/18/17 07:00 15:00 23:00 07:00 15:00 23:00 Intake Total 0 ml 750 ml 360 ml Output Total 50 ml Balance 0 ml 700 ml 360 ml Intake Oral 0 ml 0 ml 360 ml IV Total 750 ml Estimated Blood Loss 50 ml # Voids 3 2 6 # Bowel Movements 0 0 0 Result Diagram: 06/17/17 0525 Imaging Last 24 hours Impressions Lumbar Spine MRI 06/16/17 0000 Signed Impressions: Service Date/Time: May 11:27 - CONCLUSION: 1. Multilevel degenerative findings of the lumbar spine. 2. Prominent reactive bony changes right base disc bulge and facet arthrosis a T12-L1 results in moderate bilateral neural foraminal narrowing. Broad-based disc bulge and facet arthrosis at L2-3 results in minimal central canal narrowing and mild left lateral recess narrowing. 3. Broad-based disc bulge and facet arthrosis at L3- 4 results in mild central canal narrowing, moderate right and mild left neural foraminal narrowing. 4. Broad-based disc bulge and facet arthrosis L4-5 results in moderate left neural foraminal narrowing. Small right-sided synovial cyst is also seen at this level extending from the facet joint. 5. Severe bilateral facet arthrosis and broad-based disc osteophyte complex at L5-S1 resulting in moderate right neural foraminal narrowing and moderate right lateral recess narrowing with possible impingement of right S1 nerve root. Koby Kingsley MD Procedures Left DESTINEE Left hip Revision DESTINEE with removal of pelvic screw Objective Remarks Left lower extremity: Clean dry dressings intact. Mild swelling. Intact sensation distally with active dorsiflexion and plantar flexion of foot. 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 WBAT LLE 2. Lovenox followed by ASA for DVT prophylaxis 3. Ice to the left hip PRN 4. Reassess LLE to see if quad strength has improved with surgery (removal of acetabular screw) secondary to femoral nerve palsy 5. Anticipatory discharge home with home health versus rehabilitation on or Tuesday 6. F/U in the office with Dr. Rojas or SARAN Wilcox as previously scheduled. 7. No dressing changes. First dressing change in office. New Tadeo Jr. Jun 18, 2017 06:29
[2017-06-18] MEDS: HYDROCHLOROTHIAZIDE 12.5 MG CAP PO SCH (09:14)
[2017-06-18] MEDS: DOCUSATE SODIUM 100 MG CAP PO SCH ×2 (09:14→20:18)
[2017-06-18] MEDS: MAGNESIUM HYDROXIDE SUSP 30 ML CUP PO PRN (09:14)
[2017-06-18] MEDS: VALSARTAN 160 MG TAB PO SCH (09:14)
[2017-06-18] MEDS: amLODIPine BESYLATE 5 MG TAB PO SCH (09:14)
[2017-06-18] MEDS: PANTOPRAZOLE SOD 20 MG DELAYED RELEASE TAB PO SCH (09:15)
[2017-06-18] MEDS: SODIUM CHLOR 0.9% 1000 ML INJ 1,000 ML IV SCH ×4 (09:15→20:12)
[2017-06-18] MEDS: METAXALONE 800 MG TAB PO SCH ×3 (09:15→18:00)
[2017-06-18] MEDS: MULTIVITAMINS/MINERALS THERAPEUTIC TAB PO SCH ×2 (09:15→20:18)
[2017-06-18 12:24] LABS: HEMATOCRIT 28.6 % (35.0-46.0); HEMOGLOBIN 9.7 GM/DL (11.6-15.3); MEAN CELL VOLUME 92.3 FL (80.0-100.0); MEAN CORPUSCULAR HEMOGLOBIN 31.4 PG (27.0-34.0); MEAN PLATELET VOLUME 8.5 FL (7.0-11.0); PLATELET COUNT 248 TH/MM3 (150-450); RED CELL DISTRIBUTION WIDTH 14.8 % (11.6-17.2); WHITE BLOOD COUNT 11.1 TH/MM3 (4.0-11.0)
[2017-06-18] MEDS: ENOXAPARIN SODIUM 40 MG/0.4 ML SYRINGE SQ SCH (15:22)
[2017-06-18] MEDS: MONTELUKAST SODIUM 10 MG TAB PO SCH (20:18)
[2017-06-19] VITALS: BP 121/59; PULSE 86; RESP 16; TEMP 99.5; O2SAT 97
[2017-06-19] MEDS: ACETAMINOPHEN/HYDROcodone 325 MG/5 MG TAB PO PRN ×4 (03:07→14:50)
[2017-06-19] MEDS: SODIUM CHLOR 0.9% 1000 ML INJ 1,000 ML IV SCH ×2 (05:07)
--- NOTE | 2017-06-19 07:04 | PD.ORT.PN ---
Subjective Subjective Remarks POD 3 s/p left DESTINEE revision doing well. pain improving. progressing with therapy. reports weakness and slight numbness that is improving of left thigh Objective Vitals Vital Signs Date Time Temp Pulse Resp B/P (MAP) Pulse Ox O2 Delivery O2 Flow Rate FiO2 06/19/17 00:00 99.5 86 16 121/59 (79) 97 06/18/17 20:00 99.5 91 17 105/64 (78) 95 06/18/17 19:30 95 21 06/18/17 16:00 96.8 83 16 107/55 (72) 95 06/18/17 11:54 97.4 87 16 87/52 (64) 93 06/18/17 08:00 97.5 76 16 97/56 (70) 96 I/O 06/18/17 06/18/17 06/18/17 06/19/17 06/19/17 06/19/17 07:00 15:00 23:00 07:00 15:00 23:00 Intake Total 360 ml 600 ml 720 ml 480 ml Balance 360 ml 600 ml 720 ml 480 ml Intake Oral 360 ml 600 ml 720 ml 480 ml # Voids 2 4 4 3 # Bowel Movements 0 0 Result Diagram: 06/18/17 1120 Imaging Last 24 hours Impressions Lumbar Spine MRI 06/16/17 0000 Signed Impressions: Service Date/Time: May 11:27 - CONCLUSION: 1. Multilevel degenerative findings of the lumbar spine. 2. Prominent reactive bony changes right base disc bulge and facet arthrosis a T12-L1 results in moderate bilateral neural foraminal narrowing. Broad-based disc bulge and facet arthrosis at L2-3 results in minimal central canal narrowing and mild left lateral recess narrowing. 3. Broad-based disc bulge and facet arthrosis at L3- 4 results in mild central canal narrowing, moderate right and mild left neural foraminal narrowing. 4. Broad-based disc bulge and facet arthrosis L4-5 results in moderate left neural foraminal narrowing. Small right-sided synovial cyst is also seen at this level extending from the facet joint. 5. Severe bilateral facet arthrosis and broad-based disc osteophyte complex at L5-S1 resulting in moderate right neural foraminal narrowing and moderate right lateral recess narrowing with possible impingement of right S1 nerve root. Koby Kingsley MD Procedures Left DESTINEE Left hip Revision DESTINEE with removal of pelvic screw Objective Remarks Left lower extremity: Clean dry dressings intact. Mild swelling. Intact sensation distally with active dorsiflexion and plantar flexion of foot. 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 WBAT LLE 2. Lovenox followed by ASA for DVT prophylaxis 3. Ice to the left hip PRN 4. Reassess LLE to see if quad strength has improved with surgery (removal of acetabular screw) secondary to femoral nerve palsy 5. Anticipatory discharge to SNF today 6. F/U in the office with Dr. Rojas or SARAN Wilcox as previously scheduled. 7. No dressing changes. First dressing change in office. Lionel Koroma/First Peg JAEN Jun 19, 2017 07:04
[2017-06-19 08:00] VITALS: BP 126/69; PULSE 100; RESP 18; TEMP 98.2; O2SAT 93
[2017-06-19] MEDS: PANTOPRAZOLE SOD 20 MG DELAYED RELEASE TAB PO SCH (08:51)
[2017-06-19] MEDS: DOCUSATE SODIUM 100 MG CAP PO SCH (08:52)
[2017-06-19] MEDS: HYDROCHLOROTHIAZIDE 12.5 MG CAP PO SCH (08:52)
[2017-06-19] MEDS: MAGNESIUM HYDROXIDE SUSP 30 ML CUP PO PRN (08:52)
[2017-06-19] MEDS: MULTIVITAMINS/MINERALS THERAPEUTIC TAB PO SCH (08:52)
[2017-06-19] MEDS: METAXALONE 800 MG TAB PO SCH ×2 (08:58→13:22)
[2017-06-19] MEDS: amLODIPine BESYLATE 5 MG TAB PO SCH (08:58)
[2017-06-19] MEDS: VALSARTAN 160 MG TAB PO SCH (08:58)
[2017-06-19 12:00] VITALS: BP 108/67; PULSE 87; RESP 18; TEMP 98.5; O2SAT 97
[2017-06-19] MEDS: ENOXAPARIN SODIUM 40 MG/0.4 ML SYRINGE SQ SCH (13:21)
--- NOTE | 2017-06-21 16:46 | HHI.DS ---
Discharge Summary Admission Date Jun 15, 2017 at 05:16 Discharge Date: Jun 19, 2017 Admitting Diagnosis OA of the left hip Status post total hip replacement, left left femoral nerve palsy Diagnosis: (1) Osteoarthritis of left hip Diagnosis: Principal ICD Codes: M16.12 - Unilateral primary osteoarthritis, left hip (2) Status post total hip replacement, left Diagnosis: Principal ICD Codes: Z96.642 - Presence of left artificial hip joint (3) Femoral nerve injury Diagnosis: Principal ICD Codes: S74.10XA - Injury of femoral nerve at hip and thigh level, unspecified leg, initial encounter Procedures Left DESTINEE Left hip Revision DESTIENE with removal of pelvic screw Brief History This is a 72 year old female patient with severe OA of the left hip. The patient had DESTINEE surgery for the OA and had a complication involving injury to the femoral nerve. A subsequent surgery took place to remove a pelvic screw placing pressure on the nerve. CBC/BMP: 06/18/17 1120 PE at Discharge Left lower extremity: Clean dry dressings intact. Mild swelling. Intact sensation distally with active dorsiflexion and plantar flexion of foot. Active firing of quads Hospital Course The patient was admitted to the hospital for severe OA of the left hip to have a DESTINEE. The patient's surgery resulted in a pelvic screw placing pressure on the patient's left femoral nerve resulting in quad weakness and hip pain. The patient was taken back to surgery and the pelvic screw was removed. The patient subsequently did well and reported improved strength about the left quad with overall improvement in pain. The patient was placed on Lovenox followed by ASA for DVT prophylaxis. The patient is WBAT on the LLE. The patient was discharged to a SNF and will f/u in the office as previously scheduled with Dr. Rojas or SARAN Wilcox. 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 Acidophilus/L. Rhamnosus (Probiotic 15 Billion Cell Cap) 15 Billion Cell Capsule [id number] CAP PO DAILY Metaxalone (Skelaxin) 800 Mg Tablet 800 MG PO TID Montelukast (Montelukast) 10 Mg Tab 10 MG PO HS, #30 TAB 0 Refills Multiple Vitamins W/ Minerals (Preservision Areds) 1 Tab 2 TAB PO DAILY for Nutritional Supplement, TAB 0 Refills Multiple Vitamins-Calcium (Calci-Max) 1 Cap 1 CAP PO DAILY for Nutritional Supplement, CAP 0 Refills Omeprazole (Omeprazole) 20 Mg Tab 20 MG PO DAILY, #30 TAB 0 Refills Valsartan-Hydrochlorothiazide (Valsartan-Hydrochlorothiazide) 160-12.5 Mg Tab 1 TAB PO DAILY for Blood Pressure Management, #30 TAB 0 Refills Discontinued Medications: Acetaminophen (Tylenol Arthritis) 650 Mg Tablet.er 2 CAP PO TID Aspirin DR (Aspirin DR) 81 Mg Tabdr 81 MG PO DAILY, TAB 0 Refills Coenzyme Q10 (Ubidecarenone) (Coq-10 Tr) 100 Mg Cap 100 CAP PO BID Ibuprofen (Ibuprofen) 400 Mg Tab 400 MG PO Q6H PRN for PAIN, TAB 0 Refills [place]-3 Fatty Acids (Fish Oil Concentrate 300 mg) 300 Mg-1,000 Mg Cap 900 CAP PO DAILY Radames Alva Jun 21, 2017 16:46
== END 2017-06-19 15:09 | DRG 467 ==
LOC: HSDI 05:16 → EDUNIT# 10:00 → N06A 11:24
PROVIDERS: ADMIT Orthopaedic Surgery; ATTEND Orthopaedic Surgery
PROC: 0SRB02A Replacement of Left Hip Joint with Metal on Polyethylene Synthetic Substitute, Uncemented, Open Approach (ICD-10-PCS; 2017-06-15)
PROC: 0SUE09Z Supplement Left Hip Joint, Acetabular Surface with Liner, Open Approach (ICD-10-PCS; 2017-06-17)
PROC: 0SPB04Z Removal of Internal Fixation Device from Left Hip Joint, Open Approach (ICD-10-PCS; 2017-06-17)
PROC: 0SPB09Z Removal of Liner from Left Hip Joint, Open Approach (ICD-10-PCS; principal; 2017-06-17 12:21)
DX: M16.12 Unilateral primary osteoarthritis, left hip (principal); T84.89XA Other specified complication of internal orthopedic prosthetic devices, implants and grafts, initial encounter; I10 Essential (primary) hypertension; S74.12XA Injury of femoral nerve at hip and thigh level, left leg, initial encounter; J45.909 Unspecified asthma, uncomplicated; K21.9 Gastro-esophageal reflux disease without esophagitis; M48.061 Spinal stenosis, lumbar region without neurogenic claudication
CPT/HCPCS: 72148; 72192; 73502; 76000; 85027; 86850; 86900; 86901; 94150; C1776; C9290; J0690; J1100; J1580; J1650; J2250; J2270; J2370; J2405; J2550; J2710; J3010; J3370; J7030; J7050; J7120; L1830